=== PATIENT | female | born 1960 | race Asian ===

== ENCOUNTER 2023-10-28 01:44 | Inpatient (IN) | payer OTHER ==
[~2023-10-28] VITALS: Ht 190.5 cm; Wt 75.3 kg
[2023-10-28] VITALS (15 sets, daily range): BP systolic 136–175; BP diastolic 44–149; TEMP 97.5–98.1; O2SAT 97–98
[2023-10-28 02:42] LABS: BASOPHILS # (AUTO) 0.3 K/UL (0.0-0.2); BASOPHILS % (AUTO) 1.7 % (0.0-2.0); EOSINOPHILS # (AUTO) 0.6 K/uL (0.0-0.7); EOSINOPHILS % (AUTO) 4.1 % (0.0-7.0); HEMOGLOBIN 9.3 g/dL (10.9-14.3); LYMPHOCYTES # (AUTO) 1.5 K/uL (0.8-4.8); LYMPHOCYTES % (AUTO) 9.9 % (20.5-51.5); MEAN CORPUSCULAR HEMOGLOBIN 31.2 uug (24.7-32.8); MEAN CORPUSCULAR HGB CONC 33 g/dL (32.3-35.6); MEAN CORPUSCULAR VOLUME 93.7 fL (75.5-95.3); MONOCYTES # (AUTO) 0.7 K/uL (0.1-1.30); MONOCYTES % (AUTO) 4.8 % (0.0-11.0); NEUTROPHILS % (AUTO) 79.5 % (38.5-71.5); PLATELET COUNT (AUTO) 359 K/uL (179-408); RED BLOOD CELL COUNT(AUTO) 2.99 MIL/uL (3.63-4.92); RED CELL DISTRIBUTION WIDTH 17.5 % (12.3-17.7); WHITE BLOOD COUNT (AUTO) 15.1 K/uL (3.8-11.8)
[2023-10-28 02:46] LABS: DIFFERENTIAL COMMENT 1
[2023-10-28 02:49] LABS: CALCIUM 10.2 mg/dL (8.5-10.1); CREATININE 0.8 mg/dL (0.6-1.3); POTASSIUM 5.3 mmol/L (3.5-5.1)
[2023-10-28] MEDS ORDERED: ASPIRIN 325 MG TABLET ONE (03:25)
[2023-10-28] MEDS ORDERED: CLONIDINE HCL 0.2 MG TABLET ONE (03:25)
[2023-10-28] MEDS ORDERED: ASPIRIN 81 MG TAB.CHEW ONE (03:31)
[2023-10-28] MEDS: ASPIRIN 81 MG TAB.CHEW PO ONE (03:36)
[2023-10-28] MEDS: CLONIDINE HCL 0.2 MG TABLET PO ONE (03:37)
[2023-10-28] MEDS: IV NORMAL SALINE 1000 ML BAG IV ONE (03:55)
[2023-10-28] MEDS ORDERED: DIATR MEGLU/DIATRIZOATE SODIUM 30 ML BOTTLE ONE (04:28)
[2023-10-28] MEDS ORDERED: AZITHROMYCIN 500MG/ D5W 250ML IVPB **ER PYXIS ONLY IV ONE (04:45)
[2023-10-28] MEDS ORDERED: CEFTRIAXONE /D5W 50ML IVPB **ER PYXIS IV ONE (04:45)
[2023-10-28] MEDS ORDERED: ACETAMINOPHEN 650 MG SUPP.RECT RC ONE (04:45)
[2023-10-28] MEDS ORDERED: ASPIRIN 300 MG RECTAL SUPP RC ONE (04:46)
[2023-10-28] MEDS: ASPIRIN 300 MG RECTAL SUPP RC ONE (04:49)
[2023-10-28] MEDS: ACETAMINOPHEN 650 MG SUPP.RECT RC ONE (04:50)
[2023-10-28] MEDS: CEFTRIAXONE 2 G in IV DEXTROSE 5% 100 ML IV ONE (04:51)
[2023-10-28] MEDS ORDERED: NICARDIPINE IN NS 200 ML IV ONE ×5 (05:38→22:13)
[2023-10-28] MEDS: NICARDIPINE IN NS 200 ML IV PRN ×2 (05:41→11:53)
[2023-10-28] MEDS: AZITHROMYCIN IV 500 MG in IV DEXTROSE 5% 250 ML IV ONE (06:10)
[2023-10-28] MEDS ORDERED: NICARDIPINE IN NS 200 ML IV PRN (10:00)
[2023-10-28] MEDS: IV D5 1/2 NS 1000 ML 1,000 ML IV PRN (16:31)
[2023-10-28] MEDS ORDERED: CEFEPIME HCL 1 G VIAL ONE (16:44)
[2023-10-28] MEDS: CEFEPIME HCL 1 G in IV DEXTROSE 5% 50 ML IV SCH (16:49)
[2023-10-28] MEDS ORDERED: ACETAMINOPHEN 325 MG SUPP ONE (17:40)
[2023-10-28] MEDS: VANCOMYCIN IV 1,000 MG in IV DEXTROSE 5% 250 ML IV SCH (17:41)
[2023-10-28] MEDS: ACETAMINOPHEN 650 MG SUPP.RECT RC PRN (17:42)
[2023-10-28] MEDS ORDERED: ATOR80TA GT (18:22)
[2023-10-28] MEDS ORDERED: ASPI-1169 GT (18:22)
[2023-10-28] MEDS ORDERED: ACET325T53 GT (18:22)
[2023-10-28] MEDS ORDERED: MELA3CAP2 GT (18:29)
[2023-10-28] MEDS ORDERED: LACT1CAP57 GT (18:29)
[2023-10-28] MEDS ORDERED: ERGOCALCIFEROL GT (18:29)
[2023-10-28] MEDS ORDERED: CARV25TA GT (18:29)
[2023-10-28] MEDS ORDERED: ISOS30TA9 GT (18:29)
[2023-10-28] MEDS ORDERED: HEPA500034 SUBCUT (18:29)
[2023-10-28] MEDS ORDERED: MINO2.5T GT (18:29)
[2023-10-28] MEDS ORDERED: HYDR100T27 PO (18:29)
[2023-10-28] MEDS ORDERED: SENN8.6T19 GT (18:31)
[2023-10-28] MEDS ORDERED: PANT40SU2 GT (18:31)
[2023-10-28] MEDS ORDERED: MODA100T29 GT (18:31)
[2023-10-28] MEDS ORDERED: MULT-213 GT (18:31)
[2023-10-28] MEDS ORDERED: FOLI0.8T2 GT (18:31)
[2023-10-28] MEDS ORDERED: POLY17PO4 GT (18:35)
[2023-10-28] MEDS ORDERED: INSU100I45 SUBCUT (18:37)
[2023-10-28] MEDS ORDERED: BISA10SU61 RC (18:38)
[2023-10-28] MEDS ORDERED: INSU100V11 SUBCUT (18:38)
[2023-10-28] MEDS ORDERED: NA P133E RC (18:39)
[2023-10-28] MEDS ORDERED: HYDROCODONE/APAP 5-325MG TABLET PO PRN (19:15)
[2023-10-29] VITALS (22 sets, daily range): BP systolic 112–163; BP diastolic 40–104; TEMP 97.8–98.5; O2SAT 97–100
[2023-10-29] MEDS ORDERED: NICARDIPINE IN NS 200 ML IV ONE ×2 (00:44→04:01)
[2023-10-29] MEDS ORDERED: DILTIAZEM HCL 25 MG IV ONE (02:08)
[2023-10-29] MEDS ORDERED: CEFEPIME HCL 1 G VIAL ONE (04:16)
[2023-10-29 05:41] LABS: BASOPHILS # (AUTO) 0.1 K/UL (0.0-0.2); BASOPHILS % (AUTO) 0.5 % (0.0-2.0); EOSINOPHILS # (AUTO) 0.3 K/uL (0.0-0.7); HEMATOCRIT 27.9 % (31.2-41.9); HEMOGLOBIN 9.3 g/dL (10.9-14.3); LYMPHOCYTES # (AUTO) 1.5 K/uL (0.8-4.8); LYMPHOCYTES % (AUTO) 9.5 % (20.5-51.5); MEAN CORPUSCULAR HEMOGLOBIN 31.6 uug (24.7-32.8); MEAN CORPUSCULAR HGB CONC 34 g/dL (32.3-35.6); MEAN CORPUSCULAR VOLUME 94.1 fL (75.5-95.3); MONOCYTES # (AUTO) 0.9 K/uL (0.1-1.30); MONOCYTES % (AUTO) 5.7 % (0.0-11.0); NEUTROPHILS # (AUTO) 13.1 K/uL (1.8-8.9); NEUTROPHILS % (AUTO) 82.3 % (38.5-71.5); PLATELET COUNT (AUTO) 369 K/uL (179-408); RED BLOOD CELL COUNT(AUTO) 2.96 MIL/uL (3.63-4.92); RED CELL DISTRIBUTION WIDTH 17.4 % (12.3-17.7); WHITE BLOOD COUNT (AUTO) 15.9 K/uL (3.8-11.8)
[2023-10-29 06:05] LABS: DIFFERENTIAL COMMENT 1
[2023-10-29 06:19] LABS: BILIRUBIN,TOTAL 0.2 mg/dL (0.2-1.0); CALCIUM 8.8 mg/dL (8.5-10.1); CREATININE 0.8 mg/dL (0.6-1.3); MAGNESIUM 2.3 mg/dL (1.8-2.4); PHOSPHOROUS 2.7 mg/dL (2.5-4.9); POTASSIUM 4.5 mmol/L (3.5-5.1); TOTAL PROTEIN, SERUM 5.9 g/dL (6.4-8.2)
[2023-10-29] MEDS: PANTOPRAZOLE SODIUM 40 MG VIAL IV SCH (06:54)
[2023-10-29] MEDS ORDERED: NICARDIPINE-NS IVPB 200 ML IV PRN (07:15)
[2023-10-29 13:41] LABS: THYROID STIMULATING HORMONE 3.541 mIU/mL (0.358-3.740)
[2023-10-29] MEDS ORDERED: BISACODYL 10 MG SUPP.RECT RC PRN (15:00)
[2023-10-29] MEDS ORDERED: FLEET ENEMA 133 ML BOTTLE RC PRN (15:00)
[2023-10-29] MEDS ORDERED: [UNRECOGNIZED DRUG - OTHER] GT SCH (15:00)
[2023-10-29] MEDS ORDERED: SENNOSIDES 1 TABLET GT PRN (15:00)
[2023-10-29] MEDS: FUROSEMIDE 40 MG/4 ML VIAL IV ONE (17:23)
[2023-10-29] MEDS: ASPIRIN 81 MG TAB.CHEW GT SCH (18:28)
[2023-10-29] MEDS: ISOSORBIDE DINITRATE 20 MG TABLET GT SCH (18:31)
[2023-10-29] MEDS: CULTURELLE CAPSULE GT SCH (18:53)
[2023-10-29] MEDS: ATORVASTATIN 40 MG TABLET GT SCH (21:40)
[2023-10-29] MEDS: CARVEDILOL 25 MG TABLET GT SCH (21:40)
[2023-10-29] MEDS: MELATONIN 3 MG TABLET GT SCH (21:41)
[2023-10-29] MEDS: MINOXIDIL 2.5 MG TABLET GT SCH (21:41)
[2023-10-29] MEDS: HEPARIN SODIUM,PORCINE 5,000 UNITS/ML VIAL SQ SCH (21:42)
[2023-10-29] MEDS: hydrALAZINE HCL 50 MG TABLET GT SCH (21:44)
[2023-10-30] VITALS (12 sets, daily range): BP systolic 131–166; BP diastolic 41–61; TEMP 97.6–98.9; O2SAT 97–100
[2023-10-30] MEDS: METOPROLOL TARTRATE 5 MG/5 ML VIAL IVP PRN (04:36)
[2023-10-30 05:09] LABS: BASOPHILS # (AUTO) 0.1 K/UL (0.0-0.2); BASOPHILS % (AUTO) 0.9 % (0.0-2.0); EOSINOPHILS # (AUTO) 0.6 K/uL (0.0-0.7); EOSINOPHILS % (AUTO) 4.4 % (0.0-7.0); HEMOGLOBIN 8.2 g/dL (10.9-14.3); LYMPHOCYTES # (AUTO) 2.4 K/uL (0.8-4.8); LYMPHOCYTES % (AUTO) 18.9 % (20.5-51.5); MEAN CORPUSCULAR HEMOGLOBIN 31.2 uug (24.7-32.8); MEAN CORPUSCULAR HGB CONC 33 g/dL (32.3-35.6); MEAN CORPUSCULAR VOLUME 95.6 fL (75.5-95.3); MONOCYTES # (AUTO) 0.8 K/uL (0.1-1.30); NEUTROPHILS # (AUTO) 8.7 K/uL (1.8-8.9); NEUTROPHILS % (AUTO) 69.8 % (38.5-71.5); PLATELET COUNT (AUTO) 306 K/uL (179-408); RED BLOOD CELL COUNT(AUTO) 2.62 MIL/uL (3.63-4.92); RED CELL DISTRIBUTION WIDTH 17.1 % (12.3-17.7); WHITE BLOOD COUNT (AUTO) 12.5 K/uL (3.8-11.8)
[2023-10-30 05:15] LABS: DIFFERENTIAL COMMENT 1
[2023-10-30 05:27] LABS: ALBUMIN 1.8 g/dL (3.4-5.0); BILIRUBIN,TOTAL 0.2 mg/dL (0.2-1.0); CALCIUM 8.4 mg/dL (8.5-10.1); CREATININE 0.9 mg/dL (0.6-1.3); MAGNESIUM 2.1 mg/dL (1.8-2.4); PHOSPHOROUS 2.5 mg/dL (2.5-4.9); POTASSIUM 4.1 mmol/L (3.5-5.1); TOTAL PROTEIN, SERUM 5.4 g/dL (6.4-8.2)
[2023-10-30] MEDS: PANTOPRAZOLE ORAL SUSPENSION 40 MG SUSPDR.PKT GT SCH (05:52)
[2023-10-30] MEDS: MODAFINIL 100 MG TABLET GT SCH (08:09)
[2023-10-30] MEDS: MULTIVITAMINS,THERAPEUTIC TABLET GT SCH (08:09)
[2023-10-30] MEDS: ERGOCALCIFEROL 50,000 UNIT CAPSULE GT SCH (08:13)
[2023-10-30] MEDS: ACETAMINOPHEN 325 MG TABLET GT PRN (11:07)
[2023-10-30] MEDS: GLUCERNA 1.2 1000ML LIQUID GT PRN (15:29)
[2023-10-30] MEDS: MIRALAX 17 GM POWD.PACK GT PRN (18:39)
[2023-10-30] MEDS: CEFEPIME HCL 2 GM in IV DEXTROSE 5% 100 ML IV SCH (23:08)
[2023-10-31 00:35] VITALS: BP 141/51; TEMP 98.3; O2SAT 98
[2023-10-31 06:14] VITALS: BP 145/52; TEMP 97.6; O2SAT 99
[2023-10-31 07:36] LABS: BASOPHILS # (AUTO) 0.1 K/UL (0.0-0.2); EOSINOPHILS # (AUTO) 0.4 K/uL (0.0-0.7); EOSINOPHILS % (AUTO) 3.4 % (0.0-7.0); HEMATOCRIT 25.2 % (31.2-41.9); HEMOGLOBIN 8.4 g/dL (10.9-14.3); LYMPHOCYTES % (AUTO) 16.7 % (20.5-51.5); MEAN CORPUSCULAR HEMOGLOBIN 31.4 uug (24.7-32.8); MEAN CORPUSCULAR HGB CONC 33 g/dL (32.3-35.6); MONOCYTES # (AUTO) 0.7 K/uL (0.1-1.30); NEUTROPHILS % (AUTO) 72.9 % (38.5-71.5); PLATELET COUNT (AUTO) 306 K/uL (179-408); RED BLOOD CELL COUNT(AUTO) 2.68 MIL/uL (3.63-4.92); RED CELL DISTRIBUTION WIDTH 17.2 % (12.3-17.7); WHITE BLOOD COUNT (AUTO) 12.3 K/uL (3.8-11.8)
[2023-10-31 07:45] LABS: DIFFERENTIAL COMMENT 1
[2023-10-31 07:59] LABS: ALBUMIN 1.9 g/dL (3.4-5.0); BILIRUBIN,TOTAL 0.3 mg/dL (0.2-1.0); CALCIUM 8.5 mg/dL (8.5-10.1); MAGNESIUM 2.5 mg/dL (1.8-2.4); PHOSPHOROUS 3.1 mg/dL (2.5-4.9); POTASSIUM 4.5 mmol/L (3.5-5.1); TOTAL PROTEIN, SERUM 5.4 g/dL (6.4-8.2); VANCOMYCIN,RANDOM 25.6 ug/mL (20.0-30.0)
[2023-10-31 08:00] VITALS: BP 161/66; TEMP 97.2; O2SAT 97
[2023-10-31 12:00] VITALS: BP 158/65; TEMP 97.8; O2SAT 97
[2023-10-31 16:00] VITALS: BP 142/57; TEMP 97.2; O2SAT 97
[2023-10-31 20:00] VITALS: BP 157/90; TEMP 97.2; O2SAT 98
[2023-11-01] VITALS: BP 142/57; TEMP 97.7; O2SAT 97
[2023-11-01 05:00] VITALS: BP 169/60; TEMP 97.9; O2SAT 98
[2023-11-01 07:36] LABS: BASOPHILS # (AUTO) 0.1 K/UL (0.0-0.2); BASOPHILS % (AUTO) 0.9 % (0.0-2.0); EOSINOPHILS # (AUTO) 0.5 K/uL (0.0-0.7); EOSINOPHILS % (AUTO) 3.5 % (0.0-7.0); HEMATOCRIT 25.1 % (31.2-41.9); HEMOGLOBIN 8.5 g/dL (10.9-14.3); LYMPHOCYTES % (AUTO) 15.9 % (20.5-51.5); MEAN CORPUSCULAR HEMOGLOBIN 32.4 uug (24.7-32.8); MEAN CORPUSCULAR HGB CONC 34 g/dL (32.3-35.6); MEAN CORPUSCULAR VOLUME 95.3 fL (75.5-95.3); MONOCYTES # (AUTO) 0.7 K/uL (0.1-1.30); MONOCYTES % (AUTO) 5.6 % (0.0-11.0); NEUTROPHILS # (AUTO) 9.5 K/uL (1.8-8.9); NEUTROPHILS % (AUTO) 74.1 % (38.5-71.5); PLATELET COUNT (AUTO) 292 K/uL (179-408); RED BLOOD CELL COUNT(AUTO) 2.63 MIL/uL (3.63-4.92); RED CELL DISTRIBUTION WIDTH 17.2 % (12.3-17.7); WHITE BLOOD COUNT (AUTO) 12.8 K/uL (3.8-11.8)
[2023-11-01 07:54] LABS: CALCIUM 8.7 mg/dL (8.5-10.1); CREATININE 1.1 mg/dL (0.6-1.3); MAGNESIUM 2.6 mg/dL (1.8-2.4); PHOSPHOROUS 3.4 mg/dL (2.5-4.9); POTASSIUM 4.9 mmol/L (3.5-5.1)
[2023-11-01 07:57] LABS: DIFFERENTIAL COMMENT 1
[2023-11-01 08:10] VITALS: BP 163/48; TEMP 97.3; O2SAT 98
[2023-11-01 12:00] VITALS: BP 153/50; TEMP 98.2; O2SAT 97
[2023-11-01 17:46] VITALS: BP 83/46; TEMP 98.4; O2SAT 96
[2023-11-01] MEDS: VANCOMYCIN IV 1,000 MG in IV DEXTROSE 5% 250 ML IV SCH (18:06)
[2023-11-01 20:47] VITALS: BP 113/65; TEMP 99.2; O2SAT 97
[2023-11-02 00:10] VITALS: BP 125/55; TEMP 98.8; O2SAT 98
[2023-11-02 05:32] VITALS: BP 167/54; TEMP 98.9; O2SAT 99
[2023-11-02 07:58] VITALS: BP 160/69; TEMP 99.1; O2SAT 98
[2023-11-02 08:07] LABS: BASOPHILS # (AUTO) 0.1 K/UL (0.0-0.2); MEAN CORPUSCULAR HGB CONC 32 g/dL (32.3-35.6); WHITE BLOOD COUNT (AUTO) 12.5 K/uL (3.8-11.8)
[2023-11-02 08:19] LABS: BASOPHILS % (AUTO) 0.8 % (0.0-2.0); EOSINOPHILS # (AUTO) 0.6 K/uL (0.0-0.7); HEMATOCRIT 24.5 % (31.2-41.9); HEMOGLOBIN 7.9 g/dL (10.9-14.3); LYMPHOCYTES % (AUTO) 15.7 % (20.5-51.5); MEAN CORPUSCULAR VOLUME 95.5 fL (75.5-95.3); MONOCYTES # (AUTO) 0.7 K/uL (0.1-1.30); MONOCYTES % (AUTO) 5.4 % (0.0-11.0); NEUTROPHILS # (AUTO) 9.1 K/uL (1.8-8.9); NEUTROPHILS % (AUTO) 73.1 % (38.5-71.5); PLATELET COUNT (AUTO) 187 K/uL (179-408); RED BLOOD CELL COUNT(AUTO) 2.56 MIL/uL (3.63-4.92); RED CELL DISTRIBUTION WIDTH 17.3 % (12.3-17.7)
[2023-11-02 08:21] LABS: ALBUMIN 1.9 g/dL (3.4-5.0); BILIRUBIN,TOTAL 0.2 mg/dL (0.2-1.0); CALCIUM 8.4 mg/dL (8.5-10.1); MAGNESIUM 2.7 mg/dL (1.8-2.4); PHOSPHOROUS 3.2 mg/dL (2.5-4.9); POTASSIUM 5.1 mmol/L (3.5-5.1); TOTAL PROTEIN, SERUM 5.5 g/dL (6.4-8.2)
[2023-11-02 08:35] LABS: DIFFERENTIAL COMMENT 1
[2023-11-02] MEDS: CLOPIDOGREL 75 MG TABLET GT SCH (09:14)
[2023-11-02 12:00] VITALS: BP 155/58; TEMP 98.3; O2SAT 97
[2023-11-02] MEDS ORDERED: SWABABLE VALVE TRANSFER SET EA MC ONE (14:11)
[2023-11-02] MEDS ORDERED: IOHEXOL 350 100 ML INFUS..BTL ONE (14:11)
[2023-11-02] MEDS ORDERED: IV NORMAL SALINE 250 ML IV ONE (14:11)
[2023-11-02 16:00] VITALS: BP 165/64; TEMP 98.2; O2SAT 96
[2023-11-02 20:00] VITALS: BP 166/60; TEMP 98.2; O2SAT 98
[2023-11-03] VITALS (7 sets, daily range): BP systolic 152–193; BP diastolic 60–70; TEMP 97.9–98.9; O2SAT 97–99
[2023-11-03 07:40] LABS: BASOPHILS # (AUTO) 0.1 K/UL (0.0-0.2); BASOPHILS % (AUTO) 0.7 % (0.0-2.0); EOSINOPHILS # (AUTO) 0.7 K/uL (0.0-0.7); EOSINOPHILS % (AUTO) 5.5 % (0.0-7.0); HEMATOCRIT 24.9 % (31.2-41.9); HEMOGLOBIN 8.5 g/dL (10.9-14.3); LYMPHOCYTES # (AUTO) 2.1 K/uL (0.8-4.8); LYMPHOCYTES % (AUTO) 16.6 % (20.5-51.5); MEAN CORPUSCULAR HEMOGLOBIN 31.6 uug (24.7-32.8); MEAN CORPUSCULAR HGB CONC 34 g/dL (32.3-35.6); MEAN CORPUSCULAR VOLUME 93.3 fL (75.5-95.3); MONOCYTES # (AUTO) 0.8 K/uL (0.1-1.30); MONOCYTES % (AUTO) 6.4 % (0.0-11.0); NEUTROPHILS # (AUTO) 8.8 K/uL (1.8-8.9); NEUTROPHILS % (AUTO) 70.8 % (38.5-71.5); PLATELET COUNT (AUTO) 254 K/uL (179-408); RED BLOOD CELL COUNT(AUTO) 2.67 MIL/uL (3.63-4.92); RED CELL DISTRIBUTION WIDTH 17.1 % (12.3-17.7); WHITE BLOOD COUNT (AUTO) 12.5 K/uL (3.8-11.8)
[2023-11-03 07:47] LABS: CALCIUM 8.7 mg/dL (8.5-10.1); POTASSIUM 5.3 mmol/L (3.5-5.1)
[2023-11-03 07:52] LABS: DIFFERENTIAL COMMENT 1
[2023-11-04] VITALS (7 sets, daily range): BP systolic 119–188; BP diastolic 54–85; TEMP 97.6–98.9; O2SAT 96–100
[2023-11-04 08:10] LABS: BASOPHILS # (AUTO) 0.1 K/UL (0.0-0.2); EOSINOPHILS # (AUTO) 0.7 K/uL (0.0-0.7); EOSINOPHILS % (AUTO) 6.5 % (0.0-7.0); HEMATOCRIT 23.7 % (31.2-41.9); LYMPHOCYTES # (AUTO) 1.9 K/uL (0.8-4.8); LYMPHOCYTES % (AUTO) 16.9 % (20.5-51.5); MEAN CORPUSCULAR HEMOGLOBIN 31.7 uug (24.7-32.8); MEAN CORPUSCULAR HGB CONC 34 g/dL (32.3-35.6); MEAN CORPUSCULAR VOLUME 94.2 fL (75.5-95.3); MONOCYTES # (AUTO) 0.7 K/uL (0.1-1.30); MONOCYTES % (AUTO) 6.1 % (0.0-11.0); NEUTROPHILS # (AUTO) 7.8 K/uL (1.8-8.9); NEUTROPHILS % (AUTO) 69.5 % (38.5-71.5); PLATELET COUNT (AUTO) 245 K/uL (179-408); RED BLOOD CELL COUNT(AUTO) 2.52 MIL/uL (3.63-4.92); RED CELL DISTRIBUTION WIDTH 17.1 % (12.3-17.7); WHITE BLOOD COUNT (AUTO) 11.3 K/uL (3.8-11.8)
[2023-11-04 08:27] LABS: DIFFERENTIAL COMMENT 1
[2023-11-04 08:44] LABS: CALCIUM 8.9 mg/dL (8.5-10.1); MAGNESIUM 2.5 mg/dL (1.8-2.4); POTASSIUM 5.3 mmol/L (3.5-5.1)
[2023-11-05 05:26] VITALS: BP 158/54; TEMP 98; O2SAT 97
[2023-11-05 07:48] VITALS: BP 134/53; TEMP 98.5; O2SAT 95
[2023-11-05 11:21] VITALS: BP 168/64; TEMP 97.8; O2SAT 96
[2023-11-05 16:12] VITALS: BP 109/52; TEMP 98.7; O2SAT 98
[2023-11-05] MEDS: ARGININE/GLUTAMINE/CALCIUM BMB 1 EACH POWD.PACK GT SCH (18:05)
[2023-11-05 20:48] VITALS: BP 147/53; TEMP 98.4; O2SAT 95
[2023-11-06 00:23] VITALS: BP 142/58; TEMP 98.3; O2SAT 95
[2023-11-06 04:00] VITALS: BP 157/63; TEMP 98.2; O2SAT 97
[2023-11-06 07:20] LABS: BASOPHILS # (AUTO) 0.1 K/UL (0.0-0.2); BASOPHILS % (AUTO) 0.8 % (0.0-2.0); EOSINOPHILS # (AUTO) 0.7 K/uL (0.0-0.7); EOSINOPHILS % (AUTO) 4.9 % (0.0-7.0); HEMATOCRIT 23.3 % (31.2-41.9); HEMOGLOBIN 7.9 g/dL (10.9-14.3); LYMPHOCYTES # (AUTO) 2.1 K/uL (0.8-4.8); LYMPHOCYTES % (AUTO) 15.5 % (20.5-51.5); MEAN CORPUSCULAR HGB CONC 34 g/dL (32.3-35.6); MONOCYTES # (AUTO) 1.1 K/uL (0.1-1.30); MONOCYTES % (AUTO) 7.8 % (0.0-11.0); NEUTROPHILS # (AUTO) 9.7 K/uL (1.8-8.9); PLATELET COUNT (AUTO) 221 K/uL (179-408); WHITE BLOOD COUNT (AUTO) 13.7 K/uL (3.8-11.8)
[2023-11-06 07:28] LABS: RED BLOOD CELL COUNT(AUTO) 2.48 MIL/uL (3.63-4.92)
[2023-11-06 07:29] LABS: DIFFERENTIAL COMMENT 1
[2023-11-06 07:30] LABS: CALCIUM 9.3 mg/dL (8.5-10.1); CREATININE 1.1 mg/dL (0.6-1.3); MAGNESIUM 2.4 mg/dL (1.8-2.4); PHOSPHOROUS 3.7 mg/dL (2.5-4.9); POTASSIUM 5.5 mmol/L (3.5-5.1)
[2023-11-06 07:41] VITALS: BP 139/47; TEMP 98; O2SAT 95
[2023-11-06] MEDS: INSULIN GLARGINE,HUM 300 UNITS/3 ML CARTRIDGE SQ SCH (11:36)
[2023-11-06 11:41] VITALS: BP 130/51; TEMP 98.9; O2SAT 96
[2023-11-06 16:00] VITALS: BP 157/60; TEMP 98.7; O2SAT 98
[2023-11-06 20:00] VITALS: BP 140/55; TEMP 97.8; O2SAT 96
[2023-11-07 00:23] VITALS: BP 134/54; TEMP 97.4; O2SAT 98
[2023-11-07 04:00] VITALS: BP 122/50; TEMP 98.5; O2SAT 96
[2023-11-07 07:18] LABS: BASOPHILS # (AUTO) 0.1 K/UL (0.0-0.2); BASOPHILS % (AUTO) 0.8 % (0.0-2.0); EOSINOPHILS # (AUTO) 0.6 K/uL (0.0-0.7); EOSINOPHILS % (AUTO) 5.9 % (0.0-7.0); HEMOGLOBIN 7.6 g/dL (10.9-14.3); LYMPHOCYTES # (AUTO) 2.5 K/uL (0.8-4.8); LYMPHOCYTES % (AUTO) 22.7 % (20.5-51.5); MEAN CORPUSCULAR HEMOGLOBIN 32.3 uug (24.7-32.8); MEAN CORPUSCULAR HGB CONC 34 g/dL (32.3-35.6); MEAN CORPUSCULAR VOLUME 93.9 fL (75.5-95.3); MONOCYTES # (AUTO) 0.9 K/uL (0.1-1.30); MONOCYTES % (AUTO) 8.4 % (0.0-11.0); NEUTROPHILS # (AUTO) 6.7 K/uL (1.8-8.9); NEUTROPHILS % (AUTO) 62.2 % (38.5-71.5); PLATELET COUNT (AUTO) 218 K/uL (179-408); RED CELL DISTRIBUTION WIDTH 17.3 % (12.3-17.7); WHITE BLOOD COUNT (AUTO) 10.9 K/uL (3.8-11.8)
[2023-11-07 07:40] VITALS: BP 128/48; TEMP 99.7; O2SAT 96
[2023-11-07 07:47] LABS: BILIRUBIN,TOTAL 0.2 mg/dL (0.2-1.0); CALCIUM 9.5 mg/dL (8.5-10.1); MAGNESIUM 2.4 mg/dL (1.8-2.4); PHOSPHOROUS 3.9 mg/dL (2.5-4.9); POTASSIUM 5.6 mmol/L (3.5-5.1)
[2023-11-07 07:49] LABS: DIFFERENTIAL COMMENT 1; RED BLOOD CELL COUNT(AUTO) 2.34 MIL/uL (3.63-4.92)
[2023-11-07 09:26] LABS: TOTAL PROTEIN, SERUM 5.6 g/dL (6.4-8.2)
[2023-11-07] MEDS ORDERED: DEXTROSE 50% 50 ML DISP.SYRIN IV PRN (10:30)
[2023-11-07] MEDS: SODIUM POLYSTYRENE SULFONATE 15 G/60 ML LIQUID UDC GT ONE (11:35)
[2023-11-07 11:44] VITALS: BP 144/52; TEMP 98.2; O2SAT 95
[2023-11-07] MEDS: INSULIN REGULAR, HUMAN 300 UNIT/3 ML VIAL SQ PRN (12:01)
[2023-11-07] MEDS: BLOOD SUGAR DIAGNOSTIC 1 EACH STRIP VI SCH (12:02)
[2023-11-07 16:00] VITALS: BP 130/50; TEMP 98.2; O2SAT 98
[2023-11-07 20:00] VITALS: BP 162/67; TEMP 97.8; O2SAT 96
[2023-11-07 21:52] LABS: *CHLORIDE RNDM,URINE 34 mmol/L (100-250); *POTASSIUM RNDM,URINE 38 mmol/L (25-125); *SODIUM RNDM,URINE 29 mmol/L (40-220)
[2023-11-08 00:28] VITALS: BP 124/53; TEMP 98.3; O2SAT 96
[2023-11-08 04:00] VITALS: BP 153/66; TEMP 98.5; O2SAT 96
[2023-11-08 06:43] LABS: BASOPHILS # (AUTO) 0.1 K/UL (0.0-0.2); EOSINOPHILS # (AUTO) 0.6 K/uL (0.0-0.7); LYMPHOCYTES # (AUTO) 2.1 K/uL (0.8-4.8); LYMPHOCYTES % (AUTO) 16.5 % (20.5-51.5); MONOCYTES # (AUTO) 1.1 K/uL (0.1-1.30); NEUTROPHILS # (AUTO) 8.6 K/uL (1.8-8.9); WHITE BLOOD COUNT (AUTO) 12.5 K/uL (3.8-11.8)
[2023-11-08 06:45] LABS: BASOPHILS % (AUTO) 0.8 % (0.0-2.0); EOSINOPHILS % (AUTO) 4.9 % (0.0-7.0); HEMATOCRIT 21.8 % (31.2-41.9); MEAN CORPUSCULAR HEMOGLOBIN 32.1 uug (24.7-32.8); MEAN CORPUSCULAR HGB CONC 34 g/dL (32.3-35.6); MONOCYTES % (AUTO) 8.6 % (0.0-11.0); NEUTROPHILS % (AUTO) 69.2 % (38.5-71.5); PLATELET COUNT (AUTO) 219 K/uL (179-408); RED CELL DISTRIBUTION WIDTH 17.1 % (12.3-17.7)
[2023-11-08 07:01] LABS: CALCIUM 9.3 mg/dL (8.5-10.1); CREATININE 1.1 mg/dL (0.6-1.3); MAGNESIUM 2.5 mg/dL (1.8-2.4); PHOSPHOROUS 4.2 mg/dL (2.5-4.9); POTASSIUM 4.9 mmol/L (3.5-5.1)
[2023-11-08 07:36] LABS: DIFFERENTIAL COMMENT 1; HEMOGLOBIN 7.4 g/dL (10.9-14.3); RED BLOOD CELL COUNT(AUTO) 2.31 MIL/uL (3.63-4.92)
[2023-11-08 07:41] VITALS: BP 155/59; TEMP 98.2; O2SAT 94
[2023-11-08 11:49] VITALS: BP 117/52; TEMP 98.3; O2SAT 96
[2023-11-08] MEDS ORDERED: EPOETIN ALFA 10,000 UNITS/ML VIAL SQ ONE (14:45)
[2023-11-08] MEDS: EPOETIN ALFA-EPBX 10,000 UNIT/ML VIAL SQ ONE (15:44)
[2023-11-08 15:58] VITALS: BP 146/65; TEMP 98.8; O2SAT 93
[2023-11-08 16:22] LABS: *BILIRUBIN,URIN NEGATIVE (NEGATIVE); *BLOOD, URINE NEGATIVE (NEGATIVE); *CLARITY,URINE CLEAR (CLEAR); *COLOR,URINE YELLOW (YELLOW); *KETONES,URINE NEGATIVE (NEGATIVE); *UROBILINOGEN,URINE 0.2 E.U./dl (NORMAL); LEUKOCYTE ESTERASE ,URINE NEGATIVE (NEGATIVE); NITRITE, URINE NEGATIVE (NEGATIVE); PH,URINE 6.5 (5.0-8.0); UGLUCOSE NEGATIVE (NEGATIVE)
[2023-11-08 16:28] LABS: *PROTEIN,URINE 3+ (NEGATIVE)
[2023-11-08 20:25] VITALS: BP 153/67; TEMP 98.9; O2SAT 98
[2023-11-09 00:20] VITALS: BP 153/58; TEMP 98.7; O2SAT 98
[2023-11-09 04:25] VITALS: BP 146/44; TEMP 98; O2SAT 98
[2023-11-09 06:51] LABS: BASOPHILS # (AUTO) 0.1 K/UL (0.0-0.2); BASOPHILS % (AUTO) 1.1 % (0.0-2.0); EOSINOPHILS # (AUTO) 0.7 K/uL (0.0-0.7); EOSINOPHILS % (AUTO) 6.3 % (0.0-7.0); HEMATOCRIT 22.8 % (31.2-41.9); HEMOGLOBIN 7.8 g/dL (10.9-14.3); LYMPHOCYTES # (AUTO) 2.3 K/uL (0.8-4.8); LYMPHOCYTES % (AUTO) 21.5 % (20.5-51.5); MEAN CORPUSCULAR HEMOGLOBIN 32.1 uug (24.7-32.8); MEAN CORPUSCULAR HGB CONC 34 g/dL (32.3-35.6); MONOCYTES # (AUTO) 0.9 K/uL (0.1-1.30); MONOCYTES % (AUTO) 8.8 % (0.0-11.0); NEUTROPHILS # (AUTO) 6.7 K/uL (1.8-8.9); NEUTROPHILS % (AUTO) 62.3 % (38.5-71.5); PLATELET COUNT (AUTO) 246 K/uL (179-408); RED CELL DISTRIBUTION WIDTH 16.9 % (12.3-17.7); WHITE BLOOD COUNT (AUTO) 10.8 K/uL (3.8-11.8)
[2023-11-09 06:59] LABS: DIFFERENTIAL COMMENT 1; RED BLOOD CELL COUNT(AUTO) 2.43 MIL/uL (3.63-4.92)
[2023-11-09 07:08] LABS: ALBUMIN 2.2 g/dL (3.4-5.0); BILIRUBIN,TOTAL 0.2 mg/dL (0.2-1.0); CALCIUM 9.4 mg/dL (8.5-10.1); MAGNESIUM 2.5 mg/dL (1.8-2.4); PHOSPHOROUS 4.3 mg/dL (2.5-4.9); POTASSIUM 5.4 mmol/L (3.5-5.1)
[2023-11-09 08:10] VITALS: BP 146/59; TEMP 98.2; O2SAT 97
[2023-11-09] MEDS: FUROSEMIDE 20 MG/2 ML VIAL IV SCH (08:53)
[2023-11-09 12:00] VITALS: BP 137/45; TEMP 98.5; O2SAT 97
[2023-11-09] MEDS: SODIUM POLYSTYRENE SULFONATE 15 G/60 ML LIQUID UDC PO ONE (13:33)
[2023-11-09 16:47] VITALS: BP 121/61; TEMP 98; O2SAT 96
[2023-11-09 20:49] VITALS: BP 129/52; TEMP 98.6; O2SAT 94
[2023-11-10 04:50] VITALS: BP 165/64; TEMP 98.9; O2SAT 96
[2023-11-10 07:48] LABS: BASOPHILS # (AUTO) 0.1 K/UL (0.0-0.2); BASOPHILS % (AUTO) 0.8 % (0.0-2.0); EOSINOPHILS # (AUTO) 0.7 K/uL (0.0-0.7); EOSINOPHILS % (AUTO) 5.9 % (0.0-7.0); HEMATOCRIT 24.2 % (31.2-41.9); HEMOGLOBIN 8.1 g/dL (10.9-14.3); LYMPHOCYTES # (AUTO) 2.1 K/uL (0.8-4.8); LYMPHOCYTES % (AUTO) 17.9 % (20.5-51.5); MEAN CORPUSCULAR HEMOGLOBIN 31.7 uug (24.7-32.8); MEAN CORPUSCULAR HGB CONC 33 g/dL (32.3-35.6); MEAN CORPUSCULAR VOLUME 95.1 fL (75.5-95.3); MONOCYTES % (AUTO) 8.3 % (0.0-11.0); NEUTROPHILS % (AUTO) 67.1 % (38.5-71.5); PLATELET COUNT (AUTO) 282 K/uL (179-408); RED BLOOD CELL COUNT(AUTO) 2.55 MIL/uL (3.63-4.92); WHITE BLOOD COUNT (AUTO) 11.9 K/uL (3.8-11.8)
[2023-11-10 07:52] LABS: CALCIUM 9.3 mg/dL (8.5-10.1); MAGNESIUM 2.2 mg/dL (1.8-2.4); PHOSPHOROUS 4.4 mg/dL (2.5-4.9); POTASSIUM 4.4 mmol/L (3.5-5.1)
[2023-11-10 08:02] LABS: DIFFERENTIAL COMMENT 1
[2023-11-10] MEDS: CLONIDINE-TTS 1 PATCH TD SCH (11:17)
[2023-11-10 12:00] VITALS: BP 125/52; TEMP 98.4; O2SAT 96
[2023-11-10 16:00] VITALS: BP 163/64; TEMP 98.9; O2SAT 95
[2023-11-10 22:49] VITALS: BP 160/58; TEMP 98.6; O2SAT 100
[2023-11-11] MEDS: INSULIN GLARGINE,HUM 300 UNITS/3 ML CARTRIDGE SQ SCH (09:10)
[2023-11-11 11:59] VITALS: BP 156/56; TEMP 98; O2SAT 95
[2023-11-11 16:00] VITALS: BP 137/51; TEMP 98.2; O2SAT 97
[2023-11-11 20:05] VITALS: BP 144/57; TEMP 98.4; O2SAT 95
[2023-11-12] VITALS (8 sets, daily range): BP systolic 125–185; BP diastolic 43–89; TEMP 97.7–98.6; O2SAT 95–100
[2023-11-12 07:29] LABS: BASOPHILS # (AUTO) 0.1 K/UL (0.0-0.2); BASOPHILS % (AUTO) 0.6 % (0.0-2.0); EOSINOPHILS # (AUTO) 0.7 K/uL (0.0-0.7); EOSINOPHILS % (AUTO) 5.7 % (0.0-7.0); HEMOGLOBIN 7.9 g/dL (10.9-14.3); LYMPHOCYTES # (AUTO) 2.1 K/uL (0.8-4.8); MEAN CORPUSCULAR HEMOGLOBIN 31.6 uug (24.7-32.8); MEAN CORPUSCULAR HGB CONC 33 g/dL (32.3-35.6); MEAN CORPUSCULAR VOLUME 95.6 fL (75.5-95.3); MONOCYTES % (AUTO) 8.3 % (0.0-11.0); NEUTROPHILS # (AUTO) 7.9 K/uL (1.8-8.9); NEUTROPHILS % (AUTO) 67.4 % (38.5-71.5); PLATELET COUNT (AUTO) 305 K/uL (179-408); RED CELL DISTRIBUTION WIDTH 16.5 % (12.3-17.7); WHITE BLOOD COUNT (AUTO) 11.7 K/uL (3.8-11.8)
[2023-11-12 07:31] LABS: DIFFERENTIAL COMMENT 1
[2023-11-12 08:10] LABS: ALBUMIN 2.2 g/dL (3.4-5.0); BILIRUBIN,TOTAL 0.3 mg/dL (0.2-1.0); CALCIUM 10.6 mg/dL (8.5-10.1); CREATININE 0.8 mg/dL (0.6-1.3); MAGNESIUM 2.3 mg/dL (1.8-2.4); PHOSPHOROUS 4.2 mg/dL (2.5-4.9); POTASSIUM 4.7 mmol/L (3.5-5.1); TOTAL PROTEIN, SERUM 5.7 g/dL (6.4-8.2)
[2023-11-12] MEDS: AMLODIPINE 5 MG TABLET GT SCH (11:56)
[2023-11-13 06:45] VITALS: BP 142/40; TEMP 98; O2SAT 99
[2023-11-13 08:56] VITALS: BP 143/49; TEMP 98; O2SAT 99
[2023-11-13] MEDS: INSULIN GLARGINE,HUM 300 UNITS/3 ML CARTRIDGE SQ SCH (09:10)
[2023-11-13 12:00] VITALS: BP 123/43; TEMP 98.2; O2SAT 99
[2023-11-13 15:53] VITALS: BP 136/45; TEMP 98.3; O2SAT 99
[2023-11-13 20:00] VITALS: BP 146/57; TEMP 97.7; O2SAT 94
[2023-11-14 06:13] LABS: BASOPHILS # (AUTO) 0.1 K/UL (0.0-0.2); BASOPHILS % (AUTO) 0.7 % (0.0-2.0); EOSINOPHILS # (AUTO) 0.7 K/uL (0.0-0.7); EOSINOPHILS % (AUTO) 6.5 % (0.0-7.0); HEMATOCRIT 23.1 % (31.2-41.9); HEMOGLOBIN 7.7 g/dL (10.9-14.3); LYMPHOCYTES # (AUTO) 2.4 K/uL (0.8-4.8); LYMPHOCYTES % (AUTO) 22.7 % (20.5-51.5); MEAN CORPUSCULAR HEMOGLOBIN 31.9 uug (24.7-32.8); MEAN CORPUSCULAR HGB CONC 33 g/dL (32.3-35.6); MEAN CORPUSCULAR VOLUME 95.8 fL (75.5-95.3); MONOCYTES # (AUTO) 0.8 K/uL (0.1-1.30); MONOCYTES % (AUTO) 7.8 % (0.0-11.0); NEUTROPHILS # (AUTO) 6.7 K/uL (1.8-8.9); NEUTROPHILS % (AUTO) 62.3 % (38.5-71.5); PLATELET COUNT (AUTO) 315 K/uL (179-408); RED CELL DISTRIBUTION WIDTH 16.8 % (12.3-17.7); WHITE BLOOD COUNT (AUTO) 10.8 K/uL (3.8-11.8)
[2023-11-14 06:20] LABS: DIFFERENTIAL COMMENT 1; RED BLOOD CELL COUNT(AUTO) 2.41 MIL/uL (3.63-4.92)
[2023-11-14 06:23] VITALS: BP 138/78; TEMP 100.3; O2SAT 93
[2023-11-14 06:24] LABS: CALCIUM 10.4 mg/dL (8.5-10.1); CREATININE 0.9 mg/dL (0.6-1.3); MAGNESIUM 2.4 mg/dL (1.8-2.4); PHOSPHOROUS 5.1 mg/dL (2.5-4.9); POTASSIUM 5.4 mmol/L (3.5-5.1)
[2023-11-14] MEDS ORDERED: SODIUM POLYSTYRENE SULFONATE 15 G/60 ML LIQUID UDC PO ONE (10:30)
[2023-11-14] MEDS: SODIUM POLYSTYRENE SULFONATE 15 G/60 ML LIQUID UDC GT ONE (11:10)
[2023-11-14 11:59] VITALS: BP 149/60; TEMP 99; O2SAT 96
[2023-11-14 16:00] VITALS: BP 146/53; TEMP 98.5; O2SAT 97
[2023-11-14 20:00] VITALS: TEMP 98.7
[2023-11-15 04:00] VITALS: TEMP 99.1
[2023-11-15 06:00] VITALS: TEMP 98.5
[2023-11-15 09:46] LABS: BASOPHILS # (AUTO) 0.1 K/UL (0.0-0.2); BASOPHILS % (AUTO) 0.6 % (0.0-2.0); EOSINOPHILS # (AUTO) 0.5 K/uL (0.0-0.7); EOSINOPHILS % (AUTO) 4.4 % (0.0-7.0); HEMATOCRIT 24.5 % (31.2-41.9); HEMOGLOBIN 7.8 g/dL (10.9-14.3); LYMPHOCYTES # (AUTO) 1.5 K/uL (0.8-4.8); LYMPHOCYTES % (AUTO) 12.4 % (20.5-51.5); MEAN CORPUSCULAR HEMOGLOBIN 30.4 uug (24.7-32.8); MEAN CORPUSCULAR HGB CONC 32 g/dL (32.3-35.6); MEAN CORPUSCULAR VOLUME 96.2 fL (75.5-95.3); MONOCYTES # (AUTO) 0.7 K/uL (0.1-1.30); MONOCYTES % (AUTO) 5.7 % (0.0-11.0); NEUTROPHILS # (AUTO) 9.3 K/uL (1.8-8.9); NEUTROPHILS % (AUTO) 76.9 % (38.5-71.5); PLATELET COUNT (AUTO) 361 K/uL (179-408); RED BLOOD CELL COUNT(AUTO) 2.55 MIL/uL (3.63-4.92); RED CELL DISTRIBUTION WIDTH 16.4 % (12.3-17.7); WHITE BLOOD COUNT (AUTO) 12.1 K/uL (3.8-11.8)
[2023-11-15 09:54] LABS: DIFFERENTIAL COMMENT 1
[2023-11-15 10:01] LABS: CALCIUM 9.8 mg/dL (8.5-10.1); CREATININE 0.8 mg/dL (0.6-1.3); POTASSIUM 4.5 mmol/L (3.5-5.1)
[2023-11-15] MEDS ORDERED: ATOR40TA GT (10:18)
[2023-11-15] MEDS ORDERED: AMLO-212 GT (10:18)
[2023-11-15] MEDS ORDERED: Glucerna 1.2 GT (10:18)
[2023-11-15] MEDS ORDERED: Insulin Glargine,Hum SQ (10:18)
[2023-11-15] MEDS ORDERED: CLOP75TA33 GT (10:18)
[2023-11-15 11:01] VITALS: BP 139/61; TEMP 98.4; O2SAT 97
[2023-11-15 13:21] VITALS: BP 139/61
== END 2023-11-15 14:50 | DRG 871 ==
LOC: ER 01:51 → TRANSITION 09:47 → CCU 10-29 02:05 → TELE3 10-30 10:45 → MEDSURG3 11-09 09:15
PROVIDERS: ADMIT Internal Medicine; ATTEND Internal Medicine
PROC: 05HC33Z Insertion of Infusion Device into Left Basilic Vein, Percutaneous Approach (ICD-10-PCS; principal; 2023-10-28)
DX: A41.9 Sepsis, unspecified organism (principal); G92.8 Other toxic encephalopathy; I21.A1 Myocardial infarction type 2; J69.0 Pneumonitis due to inhalation of food and vomit; I50.31 Acute diastolic (congestive) heart failure; I63.9 Cerebral infarction, unspecified; I69.354 Hemiplegia and hemiparesis following cerebral infarction affecting left non-dominant side; M31.9 Necrotizing vasculopathy, unspecified; G93.49 Other encephalopathy; R47.01 Aphasia; I13.0 Hypertensive heart and chronic kidney disease with heart failure and stage 1 through stage 4 chronic kidney disease, or unspecified chronic kidney disease; I16.0 Hypertensive urgency; I65.21 Occlusion and stenosis of right carotid artery; Z66 Do not resuscitate; L89.152 Pressure ulcer of sacral region, stage 2; N18.9 Chronic kidney disease, unspecified; E11.22 Type 2 diabetes mellitus with diabetic chronic kidney disease; E78.5 Hyperlipidemia, unspecified; I69.319 Unspecified symptoms and signs involving cognitive functions following cerebral infarction; Z93.1 Gastrostomy status; Z95.1 Presence of aortocoronary bypass graft; I25.10 Atherosclerotic heart disease of native coronary artery without angina pectoris; D64.9 Anemia, unspecified; E87.5 Hyperkalemia; R29.739 NIHSS score 39; Z79.4 Long term (current) use of insulin; Z79.82 Long term (current) use of aspirin
CPT/HCPCS: 36415; 70450; 70496; 70551; 71045; 83550; 83605; 83735; 84100; 84133; 84300; 84443; 84484; 85025; 85730; 87040; 93307; A4606; A4663; A6209; A6213; C9113; G0378; J0456; J0692; J0696; J0885; J1644; J1815; J1940; J3370; J3490; J7040; J7050; Q9963; Q9967